=== PATIENT | female | born 1990 | race African-American/Black ===

== ENCOUNTER 2016-10-25 10:48 | Emergency (ER) | payer OTHER ==
[~2016-10-25] VITALS: Ht 162.6 cm; Wt 64.2 kg
[2016-10-25 10:50] VITALS: TEMP 36.7; Ht 162.6 cm; Wt 64.2 kg
[2016-10-25] MEDS ORDERED: ACETAMINOPHEN 325 MG TAB PO STA (11:44)
--- NOTE | 2016-10-25 11:49 | DIAGNOSTIC IMAGING REPORT ---
RIGHT HAND MIN 3 VIEWS ROUTINE HISTORY:25 yearsFemaleRight hand pain from fall Right COMPARISON: None available TECHNIQUE: 3 views of the right hand FINDINGS: Remote fracture deformity of the distal fifth metacarpal is seen with persistent apex dorsal angulation of the healed fracture. No acute fracture, dislocation or significant degenerative changes are identified. There is mild soft tissue swelling of the medial hand centered about the fifth metacarpal phalangeal joint. No radiopaque foreign body. IMPRESSION: 1. Mild soft tissue swelling about the fifth metacarpal phalangeal joint without acute fracture or dislocation identified. 2. Remote fracture deformity of the fifth metacarpal. The above report was generated using voice recognition software. It may contain grammatical, syntax or spelling errors. Electronically signed by: Jovanni Thompson M.D. 10/25/2016 11:47 AM Dictated Date/Time: 10/25/2016 11:45 AM
[2016-10-25 11:53] VITALS: BP 119/68; PULSE 75; O2SAT 96
--- NOTE | 2016-10-25 16:10 | EMERGENCY ROOM VISIT NOTE ---
ED Visit Note First contact with patient: 11:15 Chief Complaint: Right hand pain. History of Present Illness: Ms. Sanchez is a 25-year-old black female who ambulates into the ED accompanied by male friend complaining right hand pain over the right fourth MCP joint and proximal phalanx of the right ring finger. Historically patient reports she's had a previous fracture to the right fifth metacarpal approximately one year ago; she did not seek medical attention at reports there remains to be deformity of the fifth metacarpal. Patient reports approximately one hour ago she tripped and fell on steps. She reports she landed on her right hand and since that time she has been having pain in the right ring finger including the proximal phalanx and the MCP joint. She describes her pain as a sharp and throbbing sensation. She rates her discomfort 5/10. Her pain is nonradiating. Her pain worsens with palpation of the MCP and the proximal phalange and extension of the MCP joint. She has not identified any alleviating factors related to the pain. She has not taken any medications for pain prior to arrival at the hospital. She denies any associated symptoms including forearm pain, wrist pain, other hand pain, finger weakness/numbness/tingling. Review of Systems: As noted above in history of present illness. Past Medical History: As previously noted. Current Medications: Patient denies. Allergies to Medications: Patient denies. Social History: Patient is not employed; she feels safe in her home environment ; she denies tobacco and admits to alcohol use. Physical Examination: Vital Signs: Date Time Temp Pulse Resp B/P (MAP) Pulse Ox O2 Delivery O2 Flow Rate FiO2 10/25/16 11:53 75 16 119/68 96 Room Air 10/25/16 10:50 36.7 76 18 110/67 98 Room Air GENERAL: 25-year-old female in mild distress due to pain, nontoxic-appearing, afebrile and hemodynamically stable. NEUROLOGICAL: Awake, alert and oriented to person, place and time. Answering questions appropriately and following commands. SKIN: Warm, dry and pink. Right Hand: Superficial abrasion over the line between the thenar and hyperthenar some evidence with minimal bleeding. Right Elbow: Small, subcentimeter superficial laceration over the olecranon process. No active bleeding. RIGHT UPPER EXTREMITY: No gross bony deformity. Soft tissue injuries as noted above. No tenderness in the shoulder, upper arm, elbow or forearm. Moderate tenderness over the posterior aspect of the hand in the area of the fourth metacarpal and fourth proximal phalange. There is also contusion in this area. I do not appreciate any bony deformity or crepitus. Decreased range of motion in the fourth and fifth MCP joints due to pain and swelling. Throughout the hand the skin was warm and pink and capillary refill is brisk. She is able to distinguish light sensations through all dermatomes of the hand. ED Course: Patient is assessed as noted above. Right Hand X-Rays: Was read by myself and radiologist showing mild soft tissue swelling over the fourth MCP joint without fracture or dislocation, remote fracture deformity of the fifth metacarpal. Patient was placed in an ulnar gutter splint. Patient was educated about today's findings and instructed on her treatment plan ; she verbalizes understanding and agreement with this plan. Clinical Impression: Right hand contusion. Soft tissue injuries to the right hand and elbow. Status post fall. Disposition: Patient discharged home in stable condition accompanied by male friend; prior to departure she was reassessed and subjectively reported she was feeling slightly worse and rated her discomfort 7/10. Plan: Comfort measures, wound care instructions and signs of infection were discussed with the patient. Patient was encouraged to follow-up through PCP for signs of infection. Patient was encouraged to follow-up with audio specialist if she continued to have hand pain in 7-10 days. Patient was encouraged return the ED for worsening pain, signs of infection, finger weakness/numbness/tingling or any new/concerning symptoms.
== END 2016-10-25 11:58 | disposition home or self-care (01) ==
LOC: C.EDB 10:49 → C.EDD 11:58
DX: S60.221A Contusion of right hand, initial encounter (principal); S59.901A Unspecified injury of right elbow, initial encounter; W10.9XXA Fall (on) (from) unspecified stairs and steps, initial encounter